=== PATIENT | male | born 2005 | race Caucasian/White ===

== ENCOUNTER 2025-07-20 13:23 | Emergency (ER) | payer OTHER, SELFPAY ==
[2025-07-20 13:24] VITALS: BP 133/82; PULSE 76; RESP 15; TEMP 36.6; O2SAT 100; BMI 31.1
--- NOTE | 2025-07-20 13:56 | EDS_ITS ---
HPI History of Present Illness Chief Complaint: Eye Problem Informant: patient Onset/Context/Timing Location: Left Eye Onset: Yesterday Context: Gradual Onset Timing: Continuous Worsened by: Nothing Relieved by: Nothing Associated Symptoms Associated Symptoms - Eyes: Crusting, Itching, Matting, Pain, Photophobia and Redness; Negative for Burning, Drainage, Eyelid swelling or Foreign body sensation Visual Changes: left: Blurred vision History of injury: No Visual correction: Corrective contact lenses Narrative Narrative: Patient presents with left eye that began yesterday. Patient states it is gradually gotten worse. Patient states it has been constant. Patient states nothing makes it better nothing makes it worse. Patient states he currently has poison jenny on his hands and arms. Patient is unsure if he has poison jenny in his eye. Patient admits to some matting and crusting. Patient admits to some itching. Patient also admits to some blurry vision. Patient denies any trauma or injury. Patient states he normally wears contacts. PFSH PFS Medical History no medical history no medical history Allergy/AdvReac Type Severity Reaction Status Date / Time amoxicillin AdvReac Severe Other Verified 07/20/25 13:26 Surgical History no surgical history no surgical history ROS ROS ED Constitutional Constitutional ED: Reports chills, fever(s) and subjective Eyes Eyes: Denies blurry vision or diplopia ENT ENT ED: Reports rhinorrhea; Denies sore throat Cardiovascular Cardiovascular: Denies chest pain or palpitations Respiratory/Chest Respiratory/Chest: Reports cough; Denies dyspnea Gastrointestinal Gastrointestinal: Denies nausea or vomiting Genitourinary Genitourinary ED: Denies dysuria or hematuria Musculoskeletal Musculoskeletal: Denies back pain or neck pain Integumentary Reports rash; Denies abscess Neurologic Neurologic: Reports headache(s); Denies weakness Allergic/Immunologic Allergic/Immunologic ED: Denies mouth swelling or urticaria EXAM Physical Exam Const Vital Signs: 07/20/25 13:24 Temperature 97.9 F Temperature Source Temporal Pulse Rate 76 Respiratory Rate 15 Blood Pressure 133/82 H Blood Pressure Mean 99 Pulse Ox 100 Oxygen Delivery Method Room Air Positive well nourished and well developed General Appearance ED: well developed and NAD Eyes Eyes Narrative: Pupils are equal, round, and reactive to light bilaterally. Extraocular muscles are intact. Conjunctiva was injected on the left. There is no purulent discharge or drainage noted. There are no corneal abrasions noted. Anterior chamber was clear. There is no hyphema. Patient was unable to tolerate funduscopic exam. There are no foreign bodies noted. Neuro oriented x3, CN's II-XII intact bilaterally, moves all extremities and no senso ry deficits noted Sensorium / Orientation: alert Motor Exam: strength 5/5 throughout Skin Skin Narrative: There is a diffuse patchy rash over the bilateral upper extremities with areas of linear vesicles. There are some mild crusting. There is no active drainage noted. MDM MDM MDM Narrative Medical decision making narrative: Patient was advised that this could be a bacterial conjunctivitis versus contact conjunctivitis. Patient was given erythromycin ophthalmic ointment with instructions to apply the ointment to the left eye 4 times daily. Patient was instructed on good handwashing. Patient was instructed to follow-up with his primary care physician in 5 to 7 days. Patient was instructed to return if worse in any way. Patient understood and was agreeable with the plan. All questions were answered. Discharge Plan Triage Chief Complaint: Eye Problem ED Provider: Jose Juan Sheppard Dx/Rx/DC Orders Clinical Impression: Conjunctivitis, Rhus dermatitis Instructions: ED Conjunctivitis, Bacterial, ED Poison Jenny Rash Primary Care Provider: Care Physician,No Primary Referrals: Yuval Rogers DO [Med Staff - Remediation Project Engineer] - 5-7 Days Care Physician,No Primary [Primary Care Provider] - Print Language: Amharic Disposition Disposition: Home, Self Care
[2025-07-20] MEDS: Erythromycin Ophthalmic (NSY) 1 GM OPTH.TUBE 1 APPLIC LEFT EYE (14:22)
--- NOTE | 2025-07-20 14:28 | ED.RN ---
pt. did not have his contacts or glasses on for visual acuity, he did not have them with him at all.
[2025-07-20 14:29] VITALS: BP 122/74; PULSE 71; RESP 16; TEMP 36.9; O2SAT 100
== END 2025-07-20 14:30 | disposition home or self-care (01) ==
PROVIDERS: Emergency Provider Emergency Medicine; Visit Provider Emergency Medicine
DX: H10.32 Unspecified acute conjunctivitis, left eye (principal); L23.7 Allergic contact dermatitis due to plants, except food
CPT/HCPCS: 99282